=== PATIENT | male | born 1930 | race Caucasian/White ===

== ENCOUNTER 2018-02-15 01:05 | Emergency (ER) | payer MEDICARE ==
[2018-02-15] MEDS ORDERED: Diltiazem IV VIAL* 5 MG/ML 10 ML VIAL IV SLOW PU ONE (01:23)
[2018-02-15] MEDS ORDERED: Digoxin IV* 0.5 MG/2 ML AMP (0.25 MG/ML) IV SLOW PU ONE (01:23)
--- OUTSIDE RECORDS SUMMARY | 2018-02-15 01:25 | XMS REPORT ---
:1930 External Reference #:[id number] Author Organization [facility] Address [address] [place] [address] [place] [address] Phone [phone] Care Team Providers Name Role Phone Alexus Bazan MD Primary Care Physician Unavailable Payers Type Date Identification Numbers Payment Provider Subscriber Health Maintenance Policy Number: Medicare Blue Ppo Jefe Segal (O) [id number] PayID: [id number] [address] [address] [place] [address] Problems Date Description Provider Status Onset: 01/19/2013 Benign essential hypertension Eufemia Garcia M.D., FACP Active Onset: 01/19/2013 Pure hypercholesterolemia Eufemia Garcia M.D., FACP Active Onset: 04/05/2015 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 Active Onset: 10/05/2015 Essential hypertension Alexus Bazan M.D. Active Onset: 04/14/2016 Dizziness and giddiness Alexus Bazan M.D. Active Note: migrainous vertigo Onset: 07/16/2016 Migraine variants, not intractable Jessica Lindsay MD Active Onset: 01/19/2013 Dysfunction of eustachian tube Eufemia Garcia M.D., FACP Inactive Inactive: 04/14/2016 Family History Date Family Member(s) Problem(s) Comments General Heart Disease General cancer Onset: (age 77 Years) Father Emphysema Rug Sample Beveler - Onset: (age 78 Years) Mother Stroke Siblings 9 5 Sisters - 1 from [place] 4 Brothers - ! Brother with dissecting aortic aneurysm - survived Social History Type Date Description Comments Marital Status Lives With Alone Occupation Retired [employer] ETOH Use Denies alcohol use Smoking 01/31/2016 Patient has never smoked pt tried it a little in the .Document: 01/31/16 - Follow Up Cardiology Recreational Drug Use Denies Drug Use Daily Caffeine Consumes on average 8oz of soda per day Daily Caffeine Consumes on average 2 cups of hot tea per day Exercise Type/Frequency Exercises regularly Stationary bike - 30 minutes Allergies, Adverse Reactions, Alerts Date Description Reaction Status Severity Comments 01/19/2013 NKDA active Medications Medication Date Status Form Strength Qnty SIG Indications Ordering Provider Verapamil HCL 02/04/ Active Tablets 80mg 90tab 1 tab by G43.809 Rafael 2017 s mouth in Hao, am and 2 MD at night Eliquis 11/27/ Active Tablets 2.5mg 180ta 1 tablet I48.0 Mitchell Faust 2018 bs by mouth [place], twice a DO [facility] day. Diazepam 11/21/ Active Tablets 5mg take one Unknown 2015 tab by mouth naheed 6 hrs as needed for vertigo/ anxiety given at [facility] prn Fluticasone 03/03/ Active Suspension 50mcg/Act 16uni 1 sprays Z00.00 Alexus Propionate 2014 ts each Bazan, nostril M.D. daily as needed Atorvastatin 02/09/ Active Tablets 10mg 90tab /2 by E78.5 Alexus Calcium 2012 s mouth Bazan, every M.D. day Ocuvite Lutein 00/ Active Capsules 30cap 1 po qd Unknown 0000 s Osteo Bi-Flex 00/ Active Tablets 2 day Unknown Advanced Triple 0000 Strength Vitamin D 3 / Active 1000Iu 1 po qd Unknown 0000 Vitamin B12 / Active Tablets Sub 500mcg 1 by Unknown 0000 mouth every day Verapamil HCL ER 10/18/ Hx Caps ER 24HR 200mg 30cap take 1 G43.809 Rafael 2017 - s pill Hao, 02/04/ once a MD 2017 day at night Verapamil HCL 07/16/ Hx Tablets 40mg 120ta 1 tab by Jessica 2017 Yaz bs farhat Lindsay MD 04/10/ 2016 night at bedtime x1 week then 1 twice daily x1 wk then 1 in Am and 2 in PM x1wk then 2 twice a day Amlodipine 07/10/ Hx Tablets 2.5mg 90tab 1 by I10 Mitchell Ann 2016 mouth Maloney, 07/10/ every DO FAC 2016 day Amlodipine 07/10/ Hx Tablets 5mg 90tab 1 by I10 Mitchell Ann 2016 s mouth Maloney, 07/17/ every DO FAC 2016 day Amlodipine 04/09/ Hx Tablets 5mg 90tab 1 by I10 Mitchell Ann 2015 mouth Maloney, 07/10/ every DO FACC 2016 day (pt is taking 1- 2.5mg tab) Eliquis 03/29/ Hx Tablets 5mg 180ta 1 by I48.0 Mitchell Faust 2015 Yaz bs mouth Maloney, 11/27/ twice a DO FAC 2017 day Amlodipine 01/09/ Hx Tablets 2.5mg 90tab 1 by Alexus Ann 2015 mouth Bazan, 04/09/ every M.D. 2015 day Ergocalciferol 04/06/ Hx Capsules [id number] 8caps 1 tab by Alexus 2014 - mouth Bazan, 12/05/ every M.D. 2015 week Klor-Con M20 03/29/ Hx Tablets ER 20Meq 90tab 1 by Mitchell Faust 2014 mouth Maloney, 01/08/ once a DO FAC 2017 day Meclizine HCL 03/03/ Hx Tablets 25mg 90tab 1 tablet Z00.00 Alexus 2014 - s three Bazan, 04/09/ times a M.D. 2015 day for vertigo ( pt states he stop taking 03/30/16 ) Ergocalciferol 02/09/ Hx Capsules [id number] 8caps 1 cap by 268.9 Eufemia 2012 - mouth Radha, 04/21/ every M.D., 2012 week FACP Aspirin Adult / Hx Chewtabs 81mg 30uni 1 po qd Unknown Low Strength 0000 - ts 2015 Fluticasone / Hx Suspension 50mcg/Act 16gm 1 spray Unknown Propionate 0000 - each 12/20/ nostril 2013 daily as needed Amlodipine / Hx Tablets 10mg 90tab 1 by Alexus Besylate 0000 - s mouth Bazan, 01/09/ every M.D. 2015 day Triamterene/Hydr / Hx Capsules 37.5-25mg 90cap 1 by Alexus ochlorothiazide 0000 - s mouth Bazan, 09/10/ every M.D. 2017 day Advil Cold & / Hx Capsules 30-200mg 1 po qd Unknown Sinus 0000 - prn 2015 Potassimin / Hx 20 Unknown - 2015 Potassium / Hx Tablets ER 20Meq 1 by Unknown Chloride ER 0000 - mouth 10/10/ 2015 day Zyrtec Allergy / Hx Capsules 10mg 1 by Unknown 0000 - mouth 04/16/ 2016 day Simply Saline / Hx Aerosol 0.9% bid Unknown - 2017 Immunizations CPT Code Status Date Vaccine Lot # [id number] Given 04/16/2017 Influenza Virus Vaccine, Quadrivalent, Split, [id number] Preservative Free [id number] Given 03/20/2016 Fluzone High Dose 46016 Given 04/05/2015 Pneumococcal Conjugate Vaccine 13 Valent For [id number] Intramuscular Use 28986 Given 03/03/2015 Influenza Virus Vaccine, Quadrivalent, Split, [id number] Preservative Free [id number] Given 04/11/2014 Fluvirin Im 3Yrs And Older 59910 Given 02/09/2013 Tdap - Tetanus/Diptheria/Acellular Pertussis [id number] 88525 Given 01/19/2013 Zoster (Zostavax) [id number] 10402 Given 04/20/2011 Pneumonia Vaccine [id number] Given 11/18/1996 Tdap - Tetanus/Diptheria/Acellular Pertussis Vital Signs Date Vital Result Comment 02/04/2018 Height 70 inches 5'10" Weight 179.12 lb Heart Rate 80 /min BP Systolic Sitting 130 mmHg BP Diastolic Sitting 80 mmHg BMI (Body Mass Index) 25.7 kg/m2 11/27/2017 Height 70 inches 5'10" Weight 183.00 lb Heart Rate 80 /min BP Systolic Sitting 128 mmHg lue reg cuff BP Diastolic Sitting 80 mmHg lue reg cuff BP Systolic Standing 134 mmHg BP Diastolic Standing 82 mmHg Respiratory Rate 16 /min BMI (Body Mass Index) 26.3 kg/m2 Ejection Fraction 60-65% 01/09/2016 echo 09/10/2017 Height 70 inches 5'10" Weight 180.00 lb without shoes Heart Rate 96 /min BP Systolic Sitting 132 mmHg Lue reg cuff BP Diastolic Sitting 80 mmHg Lue reg cuff BP Systolic Standing 136 mmHg Lue reg cuff BP Diastolic Standing 74 mmHg Lue reg cuff Respiratory Rate 20 /min BMI (Body Mass Index) 25.8 kg/m2 Ejection Fraction 60-65% date 01/09/16 ECHO 05/07/2017 Height 70.2 inches 5'10.20" Weight 182.12 lb Heart Rate 76 /min BP Systolic 138 mmHg BP Diastolic 78 mmHg BMI (Body Mass Index) 26.0 kg/m2 04/16/2017 Height 70.2 inches 5'10.20" Weight 183.00 lb Heart Rate 86 /min BP Systolic Sitting 140 mmHg BP Diastolic Sitting 82 mmHg O2 % BldC Oximetry 92 % BMI (Body Mass Index) 26.1 kg/m2 10/18/2016 Height 70 inches 5'10" Weight 186.00 lb Heart Rate 76 /min BP Systolic Sitting 132 mmHg BP Diastolic Sitting 78 mmHg Respiratory Rate 16 /min BMI (Body Mass Index) 26.7 kg/m2 10/14/2016 Height 70 inches 5'10" Weight 185.12 lb Heart Rate 74 /min BP Systolic 128 mmHg BP Diastolic 72 mmHg Body Temperature 98.4 F O2 % BldC Oximetry 96 % BMI (Body Mass Index) 26.6 kg/m2 07/16/2016 Height 70 inches 5'10" Weight 187.00 lb Heart Rate 80 /min BP Systolic Sitting 112 mmHg BP Diastolic Sitting 70 mmHg Respiratory Rate 16 /min BMI (Body Mass Index) 26.8 kg/m2 07/10/2016 Height 70 inches 5'10" Weight 187.50 lb with shoes Heart Rate 84 /min BP Systolic Sitting 128 mmHg Lue reg cuff BP Diastolic Sitting 82 mmHg Lue reg cuff BP Systolic Standing 138 mmHg Lue reg cuff BP Diastolic Standing 86 mmHg Lue reg cuff Respiratory Rate 16 /min BMI (Body Mass Index) 26.9 kg/m2 Ejection Fraction 60-65% 01/09/2016 echo 04/16/2016 Height 70 inches 5'10" Weight 185.12 lb Heart Rate 94 /min BP Systolic Sitting 130 mmHg BP Diastolic Sitting 70 mmHg Body Temperature 98.3 F O2 % BldC Oximetry 95 % BMI (Body Mass Index) 26.6 kg/m2 04/09/2016 Height 70 inches 5'10" Weight 183.00 lb Heart Rate 77 /min BP Systolic Sitting 166 mmHg BP Diastolic Sitting 78 mmHg Body Temperature 97.7 F O2 % BldC Oximetry 97 % BMI (Body Mass Index) 26.3 kg/m2 03/29/2016 Height 70 inches 5'10" Weight 182.50 lb with shoes Heart Rate 98 /min BP Systolic Sitting 160 mmHg Lue reg cuff BP Diastolic Sitting 96 mmHg Lue reg cuff BP Systolic Standing 156 mmHg Lue reg cuff BP Diastolic Standing 90 mmHg Lue reg cuff Respiratory Rate 20 /min BMI (Body Mass Index) 26.2 kg/m2 Ejection Fraction 60-65% 01/09/2016 01/31/2016 Height 70 inches 5'10" Weight 180.50 lb Heart Rate 76 /min BP Systolic Sitting 144 mmHg Right arm regular cuff BP Diastolic Sitting 70 mmHg Right arm regular cuff BP Systolic Standing 124 mmHg BP Diastolic Standing 66 mmHg BMI (Body Mass Index) 25.9 kg/m2 Ejection Fraction 60-65% 01/09/16 01/16/2016 Weight 180.00 lb Heart Rate 80 /min BP Systolic Sitting 138 mmHg BP Diastolic Sitting 70 mmHg O2 % BldC Oximetry 97 % 12/06/2015 Weight 178.00 lb Heart Rate 101 /min BP Systolic Sitting 126 mmHg BP Diastolic Sitting 84 mmHg Body Temperature 96.9 F O2 % BldC Oximetry 97 % 10/13/2015 Height 69.5 inches 5'9.50" Weight 182.00 lb Heart Rate 88 /min BP Systolic Sitting 126 mmHg Ra reg cuff BP Diastolic Sitting 82 mmHg Ra reg cuff BP Systolic Standing 128 mmHg LA reg cuff BP Diastolic Standing 80 mmHg LA reg cuff BP Systolic Lying Down 118 mmHg LA BP Diastolic Lying Down 78 mmHg LA Respiratory Rate 18 /min BMI (Body Mass Index) 26.5 kg/m2 10/05/2015 Weight 182.00 lb Heart Rate 66 /min BP Systolic Sitting 123 mmHg BP Diastolic Sitting 71 mmHg Body Temperature 96.7 F 05/16/2015 Height 72 inches 6'0" Weight 183.00 lb Heart Rate 97 /min BP Systolic 135 mmHg BP Diastolic 72 mmHg BMI (Body Mass Index) 24.8 kg/m2 04/05/2015 Weight 183.00 lb Heart Rate 84 /min BP Systolic Sitting 132 mmHg BP Diastolic Sitting 80 mmHg Respiratory Rate 13 /min Body Temperature 98.3 F O2 % BldC Oximetry 97 % 03/03/2015 Weight 183.00 lb Heart Rate 78 /min BP Systolic Sitting 153 mmHg BP Diastolic Sitting 82 mmHg Body Temperature 97.0 F 12/20/2013 Height 70.25 inches 5'10.25" Weight 187.00 lb Heart Rate 72 /min BP Systolic Sitting 140 mmHg BP Diastolic Sitting 78 mmHg BMI (Body Mass Index) 26.6 kg/m2 04/21/2013 Weight 185.00 lb Heart Rate 70 /min irreg BP Systolic Sitting 142 mmHg BP Diastolic Sitting 76 mmHg 02/09/2013 Height 70.25 inches 5'10.25" Weight 185.00 lb Heart Rate 84 /min BP Systolic Sitting 128 mmHg BP Diastolic Sitting 82 mmHg BMI (Body Mass Index) 26.4 kg/m2 01/19/2013 Height 70.25 inches 5'10.25" Weight 180.25 lb Heart Rate 88 /min BP Systolic Sitting 130 mmHg BP Diastolic Sitting 72 mmHg BMI (Body Mass Index) 25.7 kg/m2 Results Test Date Test Result H/L Range Note Basic Metabolic Panel 01/19/2018 Sodium 141 mmol/L 135-145 Potassium 4.0 mmol/L 3.5-5.0 Chloride 107 mmol/L 101-111 Co2 Carbon Dioxide 28 mmol/L 22-32 Anion Gap 6 mmol/L 2-11 Glucose 113 mg/dL High 70-100 Blood Urea Nitrogen 16 mg/dL 6-24 Creatinine 0.98 mg/dL 0.67-1.17 BUN/Creatinine Ratio 16.3 8-20 Calcium 9.1 mg/dL 8.6-10.3 Egfr Non- 72.5 >60 Egfr 87.7 >60 1 Laboratory test finding 11/21/2017 PSA Screening 1.204 ng/mL 0-4.0 2 Laboratory test finding 04/24/2017 Hemoglobin A1c 5.6 5-7 Lipid Profile (Trig/Chol/HDL) 04/22/2017 Triglycerides 104 mg/dL 3 Cholesterol 132 mg/dL 4 HDL Cholesterol 35.4 mg/dL 5 LDL Cholesterol 76 mg/dL 6 Basic Metabolic Panel 04/22/2017 Sodium 137 mmol/L 133-145 Potassium 4.2 mmol/L 3.5-5.0 Chloride 102 mmol/L 101-111 Co2 Carbon Dioxide 28 mmol/L 22-32 Anion Gap 7 mmol/L 2-11 Glucose 114 mg/dL High 70-100 Blood Urea Nitrogen 18 mg/dL 6-24 Creatinine 1.17 mg/dL 0.67-1.17 BUN/Creatinine Ratio 15.4 8-20 Calcium 9.9 mg/dL 8.6-10.3 Egfr Non- 59.2 >60 Egfr 76.2 >60 7 Laboratory test finding 04/22/2017 Vitamin B12 489 pg/mL 180-914 8 Laboratory test finding 11/26/2016 PSA Diagnostic 0.621 ng/mL 0-4.0 Laboratory test finding 11/26/2016 Vitamin B12 176 pg/mL Low 180-914 9 Methylmalonic Acid Mma 0.29 nmol/mL <=0.40 10 TSH (Thyroid Stim Horm) 0.90 mcIU/mL 0.34-5.60 Comp Metabolic Panel 09/30/2016 Sodium 135 mmol/L 133-145 Potassium 4.0 mmol/L 3.5-5.0 Chloride 103 mmol/L 101-111 Co2 Carbon Dioxide 26 mmol/L 22-32 Anion Gap 6 mmol/L 2-11 Glucose 92 mg/dL 70-100 Blood Urea Nitrogen 21 mg/dL 6-24 Creatinine 1.09 mg/dL 0.67-1.17 BUN/Creatinine Ratio 19.3 8-20 Calcium 9.3 mg/dL 8.6-10.3 Total Protein 6.6 g/dL 6.4-8.9 Albumin 3.9 g/dL 3.2-5.2 Globulin 2.7 g/dL 2-4 Albumin/Globulin Ratio 1.4 1-3 Total Bilirubin 0.80 mg/dL 0.2-1.0 Alkaline Phosphatase 55 U/L 34-104 Alt 11 U/L 7-52 Ast 14 U/L 13-39 Egfr Non- 64.3 >60 Egfr 82.7 >60 11 Laboratory test finding 04/09/2016 Potassium 4.4 mmol/L 3.5-5.0 Lipid Profile (Trig/Chol/HDL) 04/04/2016 Triglycerides 96 mg/dL 12 Cholesterol 129 mg/dL 13 HDL Cholesterol 34.3 mg/dL 14 LDL Cholesterol 76 mg/dL 15 Basic Metabolic Panel 01/16/2016 Sodium 135 mmol/L 133-145 Potassium 4.1 mmol/L 3.5-5.0 Chloride 100 mmol/L Low 101-111 Co2 Carbon Dioxide 29 mmol/L 22-32 Anion Gap 6 mmol/L 2-11 Glucose 100 mg/dL 70-100 Blood Urea Nitrogen 23 mg/dL 6-24 Creatinine 1.15 mg/dL 0.67-1.17 BUN/Creatinine Ratio 20.0 8-20 Calcium 9.4 mg/dL 8.6-10.3 Egfr Non- 60.6 >60 Egfr 77.9 >60 16 Laboratory test finding 01/08/2016 Magnesium 2.0 mg/dL 1.9-2.7 C Reactive Protein 2.62 mg/L < 5.00 17 Troponin-I (TnI) 0.00 ng/mL <0.03 18 TSH (Thyroid Stim Horm) 1.09 mcIU/mL 0.34-5.60 Comp Metabolic Panel 01/08/2016 Sodium 136 mmol/L 133-145 Potassium 3.2 mmol/L Low 3.5-5.0 Chloride 101 mmol/L 101-111 Co2 Carbon Dioxide 28 mmol/L 22-32 Anion Gap 7 mmol/L 2-11 Glucose 122 mg/dL High 70-100 Blood Urea Nitrogen 18 mg/dL 6-24 Creatinine 1.09 mg/dL 0.67-1.17 BUN/Creatinine Ratio 16.5 8-20 Calcium 9.8 mg/dL 8.6-10.3 Total Protein 7.1 g/dL 6.4-8.9 Albumin 3.8 g/dL 3.2-5.2 Globulin 3.3 g/dL 2-4 Albumin/Globulin Ratio 1.2 1-3 Total Bilirubin 0.60 mg/dL 0.2-1.0 Alkaline Phosphatase 58 U/L 34-104 Alt 12 U/L 7-52 Ast 15 U/L 13-39 Egfr Non- 64.4 >60 Egfr 82.9 >60 19 Urinalysis Profile 01/08/2016 Urine Color Yellow Urine Appearance Clear Urine Specific [place] 1.008 Low 1.010-1.030 Urine pH 8.0 5-9 Urine Urobilinogen Negative Negative Urine Ketones Negative Negative Urine Protein Negative Negative Urine Leukocytes Negative Negative Urine Blood Negative Negative Urine Nitrite Negative Negative Urine Bilirubin Negative Negative Urine Glucose Negative Negative CBC Auto Diff 01/08/2016 White Blood Count 8.8 10^3/uL 3.5-10.8 Red Blood Count 5.33 10^6/uL 4.0-5.4 Hemoglobin 16.2 g/dL 14.0-18.0 Hematocrit 48 % 42-52 Mean Corpuscular Volume 90 fL 80-94 Mean Corpuscular Hemoglobin 31 pg 27-31 Mean Corpuscular HGB Conc 34 g/dL 31-36 Red Cell Distribution Width 14 % 10.5-15 Platelet Count 254 10^3/uL 150-450 Mean Platelet Volume 9 um3 7.4-10.4 Abs Neutrophils 6.5 10^3/uL 1.5-7.7 Abs Lymphocytes 0.9 10^3/uL Low 1.0-4.8 Abs Monocytes 1.3 10^3/uL High 0-0.8 Abs Eosinophils 0 10^3/uL 0-0.6 Abs Basophils 0.1 10^3/uL 0-0.2 Abs Nucleated RBC 0 10^3/uL Granulocyte % 74.0 % 38-83 Lymphocyte % 10.2 % Low 25-47 Monocyte % 14.4 % High 1-9 Eosinophil % 0.6 % 0-6 Basophil % 0.8 % 0-2 Nucleated Red Blood Cells % 0.1 Laboratory test finding 01/08/2016 Lactic Acid 2.0 mmol/L 0.5-2.0 20 B-Type Natriuretic Peptide BNP 124 pg/mL High 21 Laboratory test finding 11/15/2015 PSA Diagnostic 0.597 ng/mL 0-4.0 22 CBC Auto Diff 11/13/2015 White Blood Count 8.4 10^3/uL 3.5-10.8 Red Blood Count 5.27 10^6/uL 4.0-5.4 Hemoglobin 16.0 g/dL 14.0-18.0 Hematocrit 49 % 42-52 Mean Corpuscular Volume 93 fL 80-94 Mean Corpuscular Hemoglobin 30 pg 27-31 Mean Corpuscular HGB Conc 33 g/dL 31-36 Red Cell Distribution Width 13 % 10.5-15 Platelet Count 247 10^3/uL 150-450 Mean Platelet Volume 9 um3 7.4-10.4 Abs Neutrophils 6.4 10^3/uL 1.5-7.7 Abs Lymphocytes 1.1 10^3/uL 1.0-4.8 Abs Monocytes 0.8 10^3/uL 0-0.8 Abs Eosinophils 0.1 10^3/uL 0-0.6 Abs Basophils 0.1 10^3/uL 0-0.2 Abs Nucleated RBC 0.01 10^3/uL Granulocyte % 76.1 % 38-83 Lymphocyte % 12.7 % Low 25-47 Monocyte % 9.4 % High 1-9 Eosinophil % 0.6 % 0-6 Basophil % 1.2 % 0-2 Nucleated Red Blood Cells % 0.1 Urinalysis Profile 11/13/2015 Urine Color Straw Urine Appearance Clear Urine Specific [place] 1.006 Low 1.010-1.030 Urine pH 7.0 5-9 Urine Urobilinogen Negative Negative Urine Ketones Negative Negative Urine Protein Negative Negative Urine Leukocytes Negative Negative Urine Blood Negative Negative Urine Nitrite Negative Negative Urine Bilirubin Negative Negative Urine Glucose Negative Negative Laboratory test finding 11/13/2015 Lactic Acid 1.6 mmol/L 0.5-2.0 23 Comp Metabolic Panel 11/13/2015 Sodium 136 mmol/L 133-145 Potassium 3.5 mmol/L 3.5-5.0 Chloride 102 mmol/L 101-111 Co2 Carbon Dioxide 27 mmol/L 22-32 Anion Gap 7 mmol/L 2-11 Glucose 114 mg/dL High 70-100 Blood Urea Nitrogen 21 mg/dL 6-24 Creatinine 1.14 mg/dL 0.67-1.17 BUN/Creatinine Ratio 18.4 8-20 Calcium 9.5 mg/dL 8.6-10.3 Total Protein 7.1 g/dL 6.4-8.9 Albumin 4.1 g/dL 3.2-5.2 Globulin 3.0 g/dL 2-4 Albumin/Globulin Ratio 1.4 1-3 Total Bilirubin 0.60 mg/dL 0.2-1.0 Alkaline Phosphatase 64 U/L 34-104 Alt 9 U/L 7-52 Ast 14 U/L 13-39 Egfr Non- 61.2 >60 Egfr 78.7 >60 24 Laboratory test finding 11/13/2015 Magnesium 2.1 mg/dL 1.9-2.7 C Reactive Protein < 1.00 mg/L < 5.00 25 Troponin-I (TnI) 0.00 ng/mL <0.03 26 TSH (Thyroid Stim Horm) 1.03 ?IU/mL 0.34-5.60 Laboratory test finding 10/05/2015 Vitamin D Total 25(Oh) 33.7 ng/mL 30- 50 Basic Metabolic Panel 10/05/2015 Sodium 138 mmol/L 133-145 Potassium 3.6 mmol/L 3.5-5.0 Chloride 102 mmol/L 101-111 Co2 Carbon Dioxide 27 mmol/L 22-32 Anion Gap 9 mmol/L 2-11 Glucose 97 mg/dL 70-100 Blood Urea Nitrogen 21 mg/dL 6-24 Creatinine 1.09 mg/dL 0.67-1.17 BUN/Creatinine Ratio 19.3 8-20 Calcium 10.0 mg/dL 8.6-10.3 Egfr Non- 64.4 >60 Egfr 82.9 >60 27 Laboratory test finding 04/05/2015 Vitamin D Total 25(Oh) 27.0 ng/mL Low 30-50 Basic Metabolic Panel 04/05/2015 Sodium 137 mmol/L 133-145 Potassium 3.6 mmol/L 3.5-5.0 Chloride 102 mmol/L 101-111 Co2 Carbon Dioxide 29 mmol/L 22-32 Anion Gap 6 mmol/L 2-11 Glucose 92 mg/dL 70-100 Blood Urea Nitrogen 27 mg/dL High 6-24 Creatinine 1.25 mg/dL High 0.67-1.17 BUN/Creatinine Ratio 21.6 High 8-20 Calcium 9.7 mg/dL 8.6-10.3 Egfr Non- 55.2 >60 Egfr 70.9 >60 28 Comp Metabolic Panel 03/29/2015 Sodium 139 mmol/L 133-145 29 Potassium 3.2 mmol/L Low 3.5-5.0 29 Chloride 103 mmol/L 101-111 29 Co2 Carbon Dioxide 30 mmol/L 22-32 29 Anion Gap 6 mmol/L 2-11 29 Glucose 90 mg/dL 70-100 29 Blood Urea Nitrogen 29 mg/dL High 6-24 29 Creatinine 1.24 mg/dL High 0.67-1.17 29 BUN/Creatinine Ratio 23.4 High 8-20 29 Calcium 9.4 mg/dL 8.6-10.3 29 Total Protein 6.8 g/dL 6.4-8.9 29 Albumin 4.3 g/dL 3.2-5.2 29 Globulin 2.5 g/dL 2-4 29 Albumin/Globulin Ratio 1.7 1-3 29 Total Bilirubin 0.80 mg/dL 0.2-1.0 29 Alkaline Phosphatase 52 U/L 34-104 29 Alt 12 U/L 7-52 29 Ast 16 U/L 13-39 29 Egfr Non- 55.7 >60 29 Egfr 71.6 >60 29, 30 Lipid Profile (Trig/Chol/HDL) 03/29/2015 Triglycerides 120 mg/dL 29, 31 Cholesterol 131 mg/dL 29, 32 HDL Cholesterol 31.0 mg/dL 29, 33 LDL Cholesterol 76 mg/dL 29, 34 Comp Metabolic Panel 12/20/2013 Sodium 139 mmol/L 133-145 Potassium 3.7 mmol/L 3.7-5.6 Chloride 104 mmol/L 101-111 Co2 Carbon Dioxide 28 mmol/L 22-32 Anion Gap 7 mmol/L 2-11 Glucose 100 mg/dL 70-100 Blood Urea Nitrogen 25 mg/dL High 6-24 Creatinine 1.31 mg/dL High 0.67-1.17 BUN/Creatinine Ratio 19.1 8-20 Calcium 9.7 mg/dL 8.6-10.3 Total Protein 7.0 g/dL 6.4-8.9 Albumin 4.4 g/dL 3.2-5.2 Globulin 2.6 g/dL 2-4 Albumin/Globulin Ratio 1.7 1-3 Total Bilirubin 0.50 mg/dL 0.2-1.0 Alkaline Phosphatase 57 U/L 34-104 Alt 14 U/L 7-52 Ast 18 U/L 13-39 Egfr Non- 52.4 >60 Egfr 67.4 >60 35 CBC With Manual Diff 12/20/2013 White Blood Count 7.4 10^3/uL 4.8-10.8 Red Blood Count 4.96 10^6/uL 4.0-5.4 Hemoglobin 15.5 g/dL 14.0-18.0 Hematocrit 45 % 42-52 Mean Corpuscular Volume 90 fL 80-94 Mean Corpuscular Hemoglobin 31 pg 27-31 Mean Corpuscular HGB Conc 35 g/dL 31-36 Red Cell Distribution Width 14 % 10.5-15 Platelet Count 220 10^3/uL 150-450 Mean Platelet Volume 9 um3 7.4-10.4 Abs Neutrophils 5.5 10^3/uL 1.5-7.7 Abs Lymphocytes 1.1 10^3/uL 1.0-4.8 Abs Monocytes 0.6 10^3/uL 0-0.8 Abs Eosinophils 0.1 10^3/uL 0-0.6 Abs Basophils 0.1 10^3/uL 0-0.2 Abs Nucleated RBC 0 10^3/uL Neutrophil % 73 % 38-83 Lymphocytes % 17 % Low 25-47 Monocytes % 7 % 0-13 Eosinophils % 1 % 0-6 Basophil % 2 % 0-2 RBC Morphology Normal Normal Liver Function Panel 04/13/2013 Total Protein 7.0 g/dL 6.2-8.1 Albumin 4.2 g/dL 3.2-5.2 Globulin 2.8 g/dL 2-4 Albumin/Globulin Ratio 1.5 1-3 Total Bilirubin 1.2 mg/dL 0.4-1.5 Direct Bilirubin 0.2 mg/dL 0.1-0.5 Indirect Bilirubin 1.0 mg/dL 0.3-1.0 Alkaline Phosphatase 54 U/L 30-110 Alt 14 U/L 14-54 Ast 16 U/L 12-42 Lipid Profile (Trig/Chol/HDL) 04/13/2013 Triglycerides 126 mg/dL 40-200 Cholesterol 150 mg/dL Less than 200 HDL Cholesterol 33 mg/dL Low 40-60 36 Cholesterol/HDL Ratio 4.6 Average High 1-4.44 LDL Cholesterol 91.8 Less Than 100 37 CBC With Manual Diff 02/02/2013 White Blood Count 8.5 10^3/uL 4.8-10.8 Red Blood Count 5.05 10^6/uL 4.0-5.4 Hemoglobin 15.6 g/dL 14.0-18.0 Hematocrit 47 % 42-52 Mean Corpuscular Volume 93 fL 80-94 Mean Corpuscular Hemoglobin 31 pg 27-31 Mean Corpuscular HGB Conc 33 g/dL 31-36 Red Cell Distribution Width 13 % 10.5-15 Platelet Count 222 10^3/uL 150-450 Mean Platelet Volume 10 um3 7.4-10.4 Abs Neutrophils 6.0 10^3/uL 1.5-7.7 Abs Lymphocytes 1.6 10^3/uL 1.0-4.8 Abs Monocytes 0.7 10^3/uL 0-0.8 Abs Eosinophils 0.1 10^3/uL 0-0.6 Abs Basophils 0.1 10^3/uL 0-0.2 Abs Nucleated RBC 0.01 10^3/uL Granulocyte % 70.8 % 38-83 Lymphocyte % 19.0 % Low 25-47 Monocyte % 7.9 % 1-9 Eosinophil % 1.3 % 0-6 Basophil % 1.0 % 0-2 Nucleated Red Blood Cells % 0.1 Vitamin D, 25 Hydroxy 02/02/2013 25-Hydroxy Vitamin D2 <4.0 ng/mL 25-Hydroxy Vitamin D3 20 ng/mL 25-Hydroxy Vitamin D Total 20 ng/mL 38 Laboratory test finding 02/02/2013 CRP High Sensitivity 0.4 mg/L 39 Comp Metabolic Panel 02/02/2013 Sodium 139 mmol/L 133-145 Potassium 4.3 mmol/L 3.5-5.0 Chloride 105 mmol/L 101-111 Co2 Carbon Dioxide 27.0 mmol/L 22-32 Anion Gap 7.0 mmol/L 2-11 Glucose 111 mg/dL High 70-100 Blood Urea Nitrogen 18 mg/dL 6-24 Creatinine 1.20 mg/dL 0.50-1.40 BUN/Creatinine Ratio 15.0 8-20 Calcium 9.6 mg/dL 8.1-9.9 Total Protein 6.7 g/dL 6.2-8.1 Albumin 3.8 g/dL 3.2-5.2 Globulin 2.9 g/dL 2-4 Albumin/Globulin Ratio 1.3 1-3 Total Bilirubin 0.8 mg/dL 0.4-1.5 Alkaline Phosphatase 61 U/L 30-110 Alt 15 U/L 14-54 Ast 16 U/L 12-42 Egfr Non- 58.1 >60 Egfr 74.7 >60 40 Lipid Profile (Trig/Chol/HDL) 02/02/2013 Triglycerides 179 mg/dL 40-200 Cholesterol 204 mg/dL High Less than 200 HDL Cholesterol 32 mg/dL Low 40-60 41 Cholesterol/HDL Ratio 6.4 Average High 1-4.44 LDL Cholesterol 136.2 High Less Than 100 42 1 Because ethnic data is not always readily available, this report includes an eGFR for both -Americans and non- Americans. The National Kidney Disease Education Program (NKDEP) does not endorse the use of the MDRD equation for patients that are not between the ages of 18 and 70, are , have extremes of body size, muscle mass, or nutritional status, or are non- or non-. According to the [employer], irrespective of diagnosis, the stage of the disease is based on the level of kidney function: Stage Description GFR(mL/min/1.73 m(2)) 1 Kidney damage with normal or decreased GFR 90 2 Kidney damage with mild decrease in GFR 60-89 3 Moderate decrease in GFR 30-59 4 Severe decrease in GFR 15-29 5 Kidney failure <15 (or dialysis) 2 Serum levels of PSA measured using the [employer] immunoassay should not be interpreted as absolute evidence of the presence or absence of disease. The PSA value should be used in conjunction with other pertinent clinical diagnostic procedures. The values obtained with different assay methods or kits cannot be used interchangeably. 3 Desirable: <150 Borderline High: 150-199 High: 200-499 Very High: >500 4 Desirable: <200 Borderline High: 200-239 High: >239 5 Low: <40 Desirable: 40-60 High: >60 6 Desirable: <100 Near Optimal: 100-129 Borderline High: 130-159 High: 160-189 Very High: >189 7 Because ethnic data is not always readily available, this report includes an eGFR for both -Americans and non- Americans. The National Kidney Disease Education Program (NKDEP) does not endorse the use of the MDRD equation for patients that are not between the ages of 18 and 70, are , have extremes of body size, muscle mass, or nutritional status, or are non- or non-. According to the National Kidney Foundation, irrespective of diagnosis, the stage of the disease is based on the level of kidney function: Stage Description GFR(mL/min/1.73 m(2)) 1 Kidney damage with normal or decreased GFR 90 2 Kidney damage with mild decrease in GFR 60-89 3 Moderate decrease in GFR 30-59 4 Severe decrease in GFR 15-29 5 Kidney failure <15 (or dialysis) 8 Normal Range 180 to 914 Indeterminate Range 145 to 180 Deficient Range <145 9 Normal Range 180 to 914 Indeterminate Range 145 to 180 Deficient Range <145 10 ADDITIONAL INFORMATION This test was developed and its performance characteristics determined by [facility] in a manner consistent with CLIA requirements. This test has not been cleared or approved by the U.S. Food and Drug Administration. Test Performed by: [facility] - [address] [address] 11 Because ethnic data is not always readily available, this report includes an eGFR for both -Americans and non- Americans. The National Kidney Disease Education Program (NKDEP) does not endorse the use of the MDRD equation for patients that are not between the ages of 18 and 70, are , have extremes of body size, muscle mass, or nutritional status, or are non- or non-. According to the National Kidney Foundation, irrespective of diagnosis, the stage of the disease is based on the level of kidney function: Stage Description GFR(mL/min/1.73 m(2)) 1 Kidney damage with normal or decreased GFR 90 2 Kidney damage with mild decrease in GFR 60-89 3 Moderate decrease in GFR 30-59 4 Severe decrease in GFR 15-29 5 Kidney failure <15 (or dialysis) 12 Desirable <150 Borderline high 150-199 High 200-499 Very High >500 13 Desirable <200 Borderline high 200-239 High >239 14 Low <40 Desirable: 40-60 High: >60 15 Desirable: <100 mg/dL Near Optimal: 100-129 mg/dL Borderline High: 130-159 mg/dL High: 160-189 mg/dL Very High: >189 mg/dL 16 Because ethnic data is not always readily available, this report includes an eGFR for both -Americans and non- Americans. The National Kidney Disease Education Program (NKDEP) does not endorse the use of the MDRD equation for patients that are not between the ages of 18 and 70, are , have extremes of body size, muscle mass, or nutritional status, or are non- or non-. According to the National Kidney Foundation, irrespective of diagnosis, the stage of the disease is based on the level of kidney function: Stage Description GFR(mL/min/1.73 m(2)) 1 Kidney damage with normal or decreased GFR 90 2 Kidney damage with mild decrease in GFR 60-89 3 Moderate decrease in GFR 30-59 4 Severe decrease in GFR 15-29 5 Kidney failure <15 (or dialysis) 17 Acute inflammation: >10.00 18 Reference Range and Interpretation: TnI (ng/mL) Interpretation Less Than 0.03 ng/mL Not supportive of diagnosis of [place] 0.03 - 0.50 ng/mL Indeterminate: suggest serial studies if clinically indicated. Greater than 0.5 ng/mL Consistent with diagnosis of [place] 19 Because ethnic data is not always readily available, this report includes an eGFR for both -Americans and non- Americans. The National Kidney Disease Education Program (NKDEP) does not endorse the use of the MDRD equation for patients that are not between the ages of 18 and 70, are , have extremes of body size, muscle mass, or nutritional status, or are non- or non-. According to the National Kidney Foundation, irrespective of diagnosis, the stage of the disease is based on the level of kidney function: Stage Description GFR(mL/min/1.73 m(2)) 1 Kidney damage with normal or decreased GFR 90 2 Kidney damage with mild decrease in GFR 60-89 3 Moderate decrease in GFR 30-59 4 Severe decrease in GFR 15-29 5 Kidney failure <15 (or dialysis) 20 [facility] Severe Sepsis and Septic Shock Management Bundle Measure requires all lactic acids initially measuring >2.0 mmol/L be repeated. 21 >100 to <200 pg/mL: likely compensated congestive heart failure (CHF) 200 to 400 pg/mL: likely moderate CHF >400 pg/mL: likely moderate to severe CHF 22 Serum levels of PSA measured using the [employer] DXI Hybritech immunoassay should not be interpreted as absolute evidence of the presence or absence of disease. The PSA value should be used in conjunction with other pertinent clinical diagnostic procedures. A PSA value in the range of 0.1 to 0.6 ng/ml is indeterminate if being used as an indicator of recurrent or residual disease. The values obtained with different assay methods or kits cannot be used interchangeably. 23 [facility] Severe Sepsis and Septic Shock Management Bundle Measure requires all lactic acids initially measuring >2.0 mmol/L be repeated. 24 Because ethnic data is not always readily available, this report includes an eGFR for both -Americans and non- Americans. The National Kidney Disease Education Program (NKDEP) does not endorse the use of the MDRD equation for patients that are not between the ages of 18 and 70, are , have extremes of body size, muscle mass, or nutritional status, or are non- or non-. According to the National Kidney Foundation, irrespective of diagnosis, the stage of the disease is based on the level of kidney function: Stage Description GFR(mL/min/1.73 m(2)) 1 Kidney damage with normal or decreased GFR 90 2 Kidney damage with mild decrease in GFR 60-89 3 Moderate decrease in GFR 30-59 4 Severe decrease in GFR 15-29 5 Kidney failure <15 (or dialysis) 25 Acute inflammation: >10.00 26 Reference Range and Interpretation: TnI (ng/mL) Interpretation Less Than 0.03 ng/mL Not supportive of diagnosis of [place] 0.03 - 0.50 ng/mL Indeterminate: suggest serial studies if clinically indicated. Greater than 0.5 ng/mL Consistent with diagnosis of [place] 27 Because ethnic data is not always readily available, this report includes an eGFR for both -Americans and non- Americans. The National Kidney Disease Education Program (NKDEP) does not endorse the use of the MDRD equation for patients that are not between the ages of 18 and 70, are , have extremes of body size, muscle mass, or nutritional status, or are non- or non-. According to the National Kidney Foundation, irrespective of diagnosis, the stage of the disease is based on the level of kidney function: Stage Description GFR(mL/min/1.73 m(2)) 1 Kidney damage with normal or decreased GFR 90 2 Kidney damage with mild decrease in GFR 60-89 3 Moderate decrease in GFR 30-59 4 Severe decrease in GFR 15-29 5 Kidney failure <15 (or dialysis) 28 Because ethnic data is not always readily available, this report includes an eGFR for both -Americans and non- Americans. The National Kidney Disease Education Program (NKDEP) does not endorse the use of the MDRD equation for patients that are not between the ages of 18 and 70, are , have extremes of body size, muscle mass, or nutritional status, or are non- or non-. According to the National Kidney Foundation, irrespective of diagnosis, the stage of the disease is based on the level of kidney function: Stage Description GFR(mL/min/1.73 m(2)) 1 Kidney damage with normal or decreased GFR 90 2 Kidney damage with mild decrease in GFR 60-89 3 Moderate decrease in GFR 30-59 4 Severe decrease in GFR 15-29 5 Kidney failure <15 (or dialysis) 29 PT IS FASTING 30 Because ethnic data is not always readily available, this report includes an eGFR for both -Americans and non- Americans. The National Kidney Disease Education Program (NKDEP) does not endorse the use of the MDRD equation for patients that are not between the ages of 18 and 70, are , have extremes of body size, muscle mass, or nutritional status, or are non- or non-. According to the National Kidney Foundation, irrespective of diagnosis, the stage of the disease is based on the level of kidney function: Stage Description GFR(mL/min/1.73 m(2)) 1 Kidney damage with normal or decreased GFR 90 2 Kidney damage with mild decrease in GFR 60-89 3 Moderate decrease in GFR 30-59 4 Severe decrease in GFR 15-29 5 Kidney failure <15 (or dialysis) 31 Desirable <150 Borderline high 150-199 High 200-499 Very High >500 32 Desirable <200 Borderline high 200-239 High >239 33 Low <40 Desirable: 40-60 High: >60 34 Desirable: <100 mg/dL Near Optimal: 100-129 mg/dL Borderline High: 130-159 mg/dL High: 160-189 mg/dL Very High: >189 mg/dL 35 Because ethnic data is not always readily available, this report includes an eGFR for both -Americans and non- Americans. The National Kidney Disease Education Program (NKDEP) does not endorse the use of the MDRD equation for patients that are not between the ages of 18 and 70, are , have extremes of body size, muscle mass, or nutritional status, or are non- or non-. According to the National Kidney Foundation, irrespective of diagnosis, the stage of the disease is based on the level of kidney function: Stage Description GFR(mL/min/1.73 m(2)) 1 Kidney damage with normal or decreased GFR 90 2 Kidney damage with mild decrease in GFR 60-89 3 Moderate decrease in GFR 30-59 4 Severe decrease in GFR 15-29 5 Kidney failure <15 (or dialysis) 36 HDL Interpretation: Undesirable: High Risk: Less than 40 mg/dL Desirable: Low Risk: Greater than 60 mg/dL 37 LDL Interpretation: Low Risk Optimal Level: LDL Less than 100 mg/dL Near or Above Optimal: LDL 100-129 mg/dL Borderline High Risk: LDL 130-159 mg/dL High Risk: LDL 160-189 mg/dL Very High Risk: LDL Greater than 189 mg/dL 38 Interpretation: 10-24 (mild to moderate deficiency) -- REFERENCE VALUE -- 25-HYDROXY D TOTAL (D2+D3) Optimum levels in the normal population are 25-80 Test Performed by: [place] [address] End Matcher: Inocencio Titus III, M.D. 39 Less Than 1.0......Low Risk of Cardiovascular Disease 1.0-3.0............Medium Risk (<2 Fold Increase) Greater Than 3.0...High Risk (Approximately 2-Fold Increase) 40 Because ethnic data is not always readily available, this report includes an eGFR for both -Americans and non- Americans. The National Kidney Disease Education Program (NKDEP) does not endorse the use of the MDRD equation for patients that are not between the ages of 18 and 70, are , have extremes of body size, muscle mass, or nutritional status, or are non- or non-. According to the National Kidney Foundation, irrespective of diagnosis, the stage of the disease is based on the level of kidney function: Stage Description GFR(mL/min/1.73 m(2)) 1 Kidney damage with normal or decreased GFR 90 2 Kidney damage with mild decrease in GFR 60-89 3 Moderate decrease in GFR 30-59 4 Severe decrease in GFR 15-29 5 Kidney failure <15 (or dialysis) 41 HDL Interpretation: Undesirable: High Risk: Less than 40 mg/dL Desirable: Low Risk: Greater than 60 mg/dL 42 LDL Interpretation: Low Risk Optimal Level: LDL Less than 100 mg/dL Near or Above Optimal: LDL 100-129 mg/dL Borderline High Risk: LDL 130-159 mg/dL High Risk: LDL 160-189 mg/dL Very High Risk: LDL Greater than 189 mg/dL Procedures Date CPT Code Description Status Comment 09/10/2017 91368 EKG Tracing & Interpretation Completed 04/24/2017 86225 Destruction ALL Benign Or Completed Premalignant Lesion (Other Than [place] 02/14/2016 35648 Event Monitor/Phys Completed Review/Interp. 01/31/2016 29370 EKG Tracing & Interpretation Completed 01/09/2016 53682 ECHO Transthorasic Realtime 2D W Completed Doppler & Color Flow Hosp 11/09/2015 38224 Carotid Doppler,Bilateral Completed 10/13/2015 65570 EKG Tracing & Interpretation Completed 10/05/2015 01669 EKG Tracing & Interpretation Completed 04/11/2015 Bone Mineral Density Test Completed 04/04/2015 54618 Nerve Conduction 03-04 Studies Completed 04/04/2015 12442 Needle Electromyography Each Completed Extremity W/Related Paraspinal Areas 12/20/2013 15987 EKG Tracing & Interpretation Completed 02/09/2013 98026 EKG Tracing & Interpretation Completed 02/09/2013 38968 Remove Impacted Cerumen Completed 09/28/2007 36957 Color Flow Doppler/Interp & Completed Reprt 09/28/2007 55336 Pulse Wave/Continuous-Interp.RPT Completed 09/28/2007 91797 Pulse Wave/Continuous-Interp.RPT Completed 09/28/2007 46755 Echocardiogram Completed 11/17/2006 Colonoscopy Completed 06/27/2000 Diabetic Retinal Eye Exam Completed Document: 06/27/00 - Consult Ophthal/Arleo Encounters Type Date Location Provider CPT E/M Dx Office Visit 01/12/2018 11:[address]a [facility] [place] [address] L82.1 D18.01 Office Visit 11/27/2017 11:20a [facility] Jarrett Maloney, [address] [facility] FACC I10 E78.5 R42 Office Visit 09/10/2017 1:40p [facility] [place] [address] [facility] FACC I10 E78.5 R42 Office Visit 05/07/2017 2:00p [facility] [place] [address] G43.809 Office Visit 04/24/2017 10:[address]a [facility] [place] [address] D18.01 L82.1 L57.0 Office Visit 04/16/2017 1:20p [facility] Internal Medicine Alexus Bazan [address]255 Z00.00 - aFnny Martel I10 E87.6 E78.5 E53.8 Z12.83 J30.9 Z23 Office Visit 10/18/2016 10:30a [facility] [place] [address] G43.[address] [facility] R53.83 Office Visit 10/14/2016 10:[address]a [facility] Internal Medicine Alexus Bazan 269[address] G43.809 - Fanny Martel R53.83 E87.6 Office Visit 07/16/2016 1:00p [facility] [place] [address] G43[address] [facility] Office Visit 07/10/2016 2:00p [facility] Of Mitchell Maloney, [address] [facility] DO FACC I10 E78.2 Office Visit 04/16/2016 1:40p [facility] Internal Medicine - Alexus Bazan M.D. 76149 I10 Fanny G43.809 Office Visit 04/09/2016 11:10a [facility] Internal Medicine Alexus Bazan 44405 Z00.00 - Fanny Martel I10 H81.11 F43.29 E78.2 E87.6 Office Visit 03/29/2016 3:40p [facility] [place] [address] [facility] FACC I10 E78.5 Office Visit 01/31/2016 3:40p [facility] [place] [address] [facility] FACC I10 Office Visit 01/16/2016 1:40[address] [facility] Internal Medicine Alexus Bazan M.D. 62134 I48.0 - [place] E87.6 H81.13 Office Visit 01/09/2016 3:08p [facility],pc Bra[place] Michelle, 62915 I48.91 Hospitalists MSarika R42 I10 Office Visit 01/08/2016 3:07p [facility], [place] Henriqueyuliana, [address]9775 I48.91 Hospitalists Delonte R42 I10 Office Visit 12/06/2015 2:20p [facility] Internal Medicine Lou Lopez, N.P. 33316 H81.13 - [place] H81.11 Office Visit 10/13/2015 1:40p [facility] Of [facility] Mitchell ShepherdDO maxine [address]75[address] R42 FACC R94.31 I10 E78.5 Office Visit 10/05/2015 10:[address]a [facility] Internal Medicine - Alexus Bazan M.D. 59125 I10 [place] E55.9 E87.6 R94.31 Office Visit 05/16/2015 1:00p [facility] [place] [address] S46.012A C.M.A. G56.02 Office Visit 03/03/2015 11:[address]a [facility] Internal Medicine Lou Lopez, N.P. 52237 H81.13 - [place] R20.2 V04.81 Z23 Office Visit 12/20/2013 1:00p [facility] Internal Medicine Lou Lopez N.P. 80740 V72.84 - [place] 401.1 272.4 Office Visit 04/21/2013 10:[address]a [facility] Internal Medicine - Eufemia Garcia M.D., 07688 272.4 [place] FACP Office Visit 02/09/2013 2:20p [facility] Internal Medicine - Eufemia Garcia M.D., 47452 V70.0 [place] FACP 272.4 268.9 424.1 401.1 V06.1 380.4 Office Visit 01/19/2013 1:20p [facility] Internal Medicine - Eufemia Garcia M.D., 74031 401.1 [place] FACP 272.0 381.81 729.1 V04.89 268.9 V04.81 Plan of Care Future Appointment(s):04/14/2018 10:45 am - Rafael Bui MD at [facility] Xxulpt8404/29/2018 10:50 am - Austin Pantoja MD at [facility] Dyllzocbfsg81/20/2018 1:00 pm - Alexus Bazan M.D. at 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 Since the symptoms have worsened especially in the morning and since he is not having clear side effects from verapamil will try verapamil 80mg in am and 160mg in pm. He will call if gets lightheaded.Follow up:10 WEEKS
[2018-02-15] MEDS ORDERED: NS 0.9% 1000 ML* 2,000 ML IV SCH (01:30)
[2018-02-15 01:40] LABS: Hematocrit 48 % (42-52); Hemoglobin 15.9 g/dl (14.0-18.0); Mean Corpuscular HGB Conc 33 g/dl (31-36); Mean Corpuscular Hemoglobin 31 pg (27-31); Mean Corpuscular Volume 93 fL (80-94); Mean Platelet Volume 8.8 um3 (7.4-10.4); Platelet Count 180 10^3/ul (150-450); Red Blood Count 5.12 10^6/ul (4.00-5.40); Red Cell Distribution Width 14 % (10.5-15); White Blood Count 14.8 10^3/ul (3.5-10.8)
[2018-02-15 01:49] LABS: INR 1.09 (0.77-1.02)
[2018-02-15 01:51] LABS: ABS Neutrophils 13.4 10^3/ul (1.5-7.7); ABS Nucleated RBC 0 10^3/ul
[2018-02-15 01:57] LABS: EGFR Non-African American 62.8 (>60)
--- NOTE | 2018-02-15 02:08 | ED ---
Complex/Multi-Sys Presentation - HPI Summary HPI Summary: 87 year old M BIB EMS to [facility] complains of nausea/vomiting/diarrhea since 22: 00 yesterday. Symptoms aggravated by nothing. Symptoms alleviated by nothing. Patient denies chest pain and shortness of breath. EMS administered Aspirin, Zofran, and NTG in field. Patient has hx paroxysmal afib and is on Eliquis. - History Of Current Complaint Chief Complaint: EDNauseaVomitDiarrh Time Seen by Provider: 02/15/18 01:21 Hx Obtained From: Patient Onset/Duration: Lasting Hours - 22:00 yesterday, Still Present Aggravating Factor(s): Nothing Alleviating Factor(s): Nothing Associated Signs And Symptoms: Negative: SOB, Chest Pain - Allergies/Home Medications Allergies/Adverse Reactions: Allergies Allergy/AdvReac Type Severity Reaction Status Date / Time No Known Allergies Allergy Verified 12/29/13 09:57 PMH/Surg Hx/FS Hx/Imm Hx Previously Healthy: No Endocrine/Hematology History: Denies: Hx Bone Marrow Disease, Hx Sickle Cell Disease, Hx Anemia Cardiovascular History: Reports: Hx Atrial Fibrillation - paroxysmal afib, Hx Hypercholesterolemia, Hx Hypertension - MEDS, Other Cardiovascular Problems/ Disorders - hld GI History: Reports: Hx Gall Bladder Disease History: Reports: Other Problems/Disorders - incontinent Musculoskeletal History: Reports: Hx Osteoporosis Denies: Hx Arthritis Sensory History: Reports: Hx Cataracts, Hx Contacts or Glasses - READING, Hx Hearing Problem - [place] Denies: Hx Hearing Aid Opthamlomology History: Reports: Hx Cataracts, Hx Contacts or Glasses - READING Neurological History: Reports: Hx Migraine - "SILENT MIGRAINE" WITH FLOURESCENT LIGHTS - Cancer History Cancer Type, Location and Year: prostate 2000 - Surgical History Surgery Procedure, Year, and Place: CHOLECYSTECTOMY MORE THAN 10YRS AGO [facility] [place]. "PROSTATE SURGERY" [facility] Hx Anesthesia Reactions: No Infectious Disease History: No Infectious Disease History: Denies: Traveled Outside the [place] in Last 30 Days - Family History Known Family History: Positive: Other - stroke - Social History Alcohol Use: Rare Hx Substance Use: No Substance Use Type: Reports: None Hx Tobacco Use: Yes Smoking Status (MU): Former Smoker Type: Cigarettes Amount Used/How Often: OCC Review of Systems Negative: Chest Pain Negative: Shortness Of Breath Positive: Vomiting, Diarrhea, Nausea All Other Systems Reviewed And Are Negative: Yes Physical Exam - Summary Physical Exam Summary: VITAL SIGNS: Reviewed. GENERAL: Patient is a well-developed and nourished male who is lying comfortable in the stretcher. Patient is not in any acute respiratory distress. HEAD AND FACE: No signs of trauma. No ecchymosis, hematomas or skull depressions. No sinus tenderness. EYES: PERRLA, EOMI x 2, No injected conjunctiva, no nystagmus. EARS: Hearing grossly intact. Ear canals and tympanic membranes are within normal limits. MOUTH: Oropharynx within normal limits. NECK: Supple, trachea is midline, no adenopathy, no JVD, no carotid bruit, no c- spine tenderness, neck with full ROM. CHEST: Symmetric, no tenderness at palpation LUNGS: Clear to auscultation bilaterally. No wheezing or crackles. CVS: Irregular tachycardia ABDOMEN: Soft, non-tender. No signs of distention. No rebound no guarding, and no masses palpated. Bowel sounds are normal. EXTREMITIES: FROM in all major joints, no edema, no cyanosis or clubbing. NEURO: Alert and oriented x 3. No acute neurological deficits. Speech is normal and follows commands. SKIN: Dry and warm Triage Information Reviewed: Yes Vital Signs On Initial Exam: Initial Vitals Temp Pulse Resp BP Pulse Ox 97.5 F 160 22 88/73 91 02/15/18 01:10 02/15/18 01:10 02/15/18 01:10 02/15/18 01:10 02/15/18 01:10 Vital Signs Reviewed: Yes Diagnostics - Vital Signs Vital Signs Temp Pulse Resp BP Pulse Ox 02/15/18 01:45 109 23 138/86 95 02/15/18 01:26 97 23 104/77 93 02/15/18 01:16 25 88/73 02/15/18 01:13 160 14 92 02/15/18 01:10 97.5 F 160 22 88/73 91 - Laboratory Lab Results: Lab Results 02/15/18 02/15/18 02/15/18 Range/Units 01:32 01:32 01:32 WBC 14.8 H (3.5-10.8) 10^3/ul RBC 5.12 (4.00-5.40) 10^6/ul Hgb 15.9 (14.0-18.0) g/dl Hct 48 (42-52) % MCV 93 (80-94) fL MCH 31 (27-31) pg MCHC 33 (31-36) g/dl RDW 14 (10.5-15) % Plt Count 180 (150-450) 10^3/ul MPV 8.8 (7.4-10.4) um3 Neut % (Auto) Pending Lymph % (Auto) Pending [place] % (Auto) Pending Eos % (Auto) Pending Baso % (Auto) Pending Absolute Neuts (auto) 13.4 H (1.5-7.7) 10^3/ul Absolute Lymphs (auto) Pending Absolute Monos (auto) Pending Absolute Eos (auto) Pending Absolute Basos (auto) Pending Absolute Nucleated RBC 0 10^3/ul Nucleated RBC % Pending INR (Anticoag Therapy) 1.09 H (0.77-1.02) APTT 29.9 (26.0-36.3) seconds Sodium 141 (135-145) mmol/L Potassium 4.0 (3.5-5.0) mmol/L Chloride 109 (101-111) mmol/L Carbon Dioxide 24 (22-32) mmol/L Anion Gap 8 (2-11) mmol/L BUN 22 (6-24) mg/dL Creatinine 1.11 (0.67-1.17) mg/dL Est GFR ( Amer) 76.0 (>60) Est GFR (Non-Af Amer) 62.8 (>60) BUN/Creatinine Ratio 19.8 (8-20) Glucose 116 H (70-100) mg/dL Calcium 8.5 L (8.6-10.3) mg/dL Magnesium 1.7 L (1.9-2.7) mg/dL Total Bilirubin 0.90 (0.2-1.0) mg/dL AST 12 L (13-39) U/L ALT 8 (7-52) U/L Alkaline Phosphatase 54 (34-104) U/L Total Creatine Kinase 32 (10-223) U/L CK-MB (CK-2) 1.7 (0.6-6.3) ng/mL Troponin I 0.01 (<0.04) ng/mL B-Natriuretic Peptide ( - 100) pg/mL Total Protein 6.2 L (6.4-8.9) g/dL Albumin 3.5 (3.2-5.2) g/dL Globulin 2.7 (2-4) g/dL Albumin/Globulin Ratio 1.3 (1-3) TSH Pending 02/15/18 Range/Units 01:32 WBC (3.5-10.8) 10^3/ul RBC (4.00-5.40) 10^6/ul Hgb (14.0-18.0) g/dl Hct (42-52) % MCV (80-94) fL MCH (27-31) pg MCHC (31-36) g/dl RDW (10.5-15) % Plt Count (150-450) 10^3/ul MPV (7.4-10.4) um3 Neut % (Auto) Lymph % (Auto) [place] % (Auto) Eos % (Auto) Baso % (Auto) Absolute Neuts (auto) (1.5-7.7) 10^3/ul Absolute Lymphs (auto) Absolute Monos (auto) Absolute Eos (auto) Absolute Basos (auto) Absolute Nucleated RBC 10^3/ul Nucleated RBC % INR (Anticoag Therapy) (0.77-1.02) APTT (26.0-36.3) seconds Sodium (135-145) mmol/L Potassium (3.5-5.0) mmol/L Chloride (101-111) mmol/L Carbon Dioxide (22-32) mmol/L Anion Gap (2-11) mmol/L BUN (6-24) mg/dL Creatinine (0.67-1.17) mg/dL Est GFR ( Amer) (>60) Est GFR (Non-Af Amer) (>60) BUN/Creatinine Ratio (8-20) Glucose (70-100) mg/dL Calcium (8.6-10.3) mg/dL Magnesium (1.9-2.7) mg/dL Total Bilirubin (0.2-1.0) mg/dL AST (13-39) U/L ALT (7-52) U/L Alkaline Phosphatase (34-104) U/L Total Creatine Kinase (10-223) U/L CK-MB (CK-2) (0.6-6.3) ng/mL Troponin I (<0.04) ng/mL B-Natriuretic Peptide 108 H ( - 100) pg/mL Total Protein (6.4-8.9) g/dL Albumin (3.2-5.2) g/dL Globulin (2-4) g/dL Albumin/Globulin Ratio (1-3) TSH Result Diagrams: 02/15/18 01:32 02/15/18 01:32 Lab Statement: Any lab studies that have been ordered have been reviewed, and results considered in the medical decision making process. - Radiology CXR Radiology Interpretation Completed By: ED Physician - No acute process. Pending official report. - EKG 0110 Cardiac Rate: Tachycardia - 159 BPM EKG Rhythm: Atrial Fibrillation EKG Interpretation: nml axis, diffuse ST depression most likely rate related 0154 Cardiac Rate: Tachycardia - 107 BPM EKG Rhythm: Sinus Rhythm EKG Interpretation: Nonspecific T-wave changes Re-Evaluation - Re-Evaluation First Eval Re-Evaluation Time: 03:00 Comment: patient feels better and is agreeable to go home Complex Multi-Symp Course/Dx Course Of Treatment: 87 year old M BIB EMS to [facility] complains of nausea/vomiting /diarrhea since 22:00 yesterday. Patient has hx A-fib and is on Eliquis. Patient arrives to ED in rapid A-fib. EKG obtained. Patient has gastroeneritis. His n/v/d probably tipped him to a-fib. With fluid, patient converted to sinus rhythm. He will be discharged with follow up from PCP in 1 day. - Diagnoses Provider Diagnoses: Paroxysmal A-fib, Gastroenteritis Discharge - Sign-Out/Discharge Documenting (check all that apply): Patient Departure - Discharge - Discharge Plan Condition: Stable Disposition: HOME Patient Education Materials: A-fib (Atrial Fibrillation) (ED), Gastroenteritis (ED) Referrals: Alexus Bazan MD [Primary Care Provider] - 1 Day Additional Instructions: RETURN TO THE EMERGENCY DEPARTMENT FOR CHANGING OR WORSENING SYMPTOMS. FOLLOW UP WITH YOUR PRIMARY CARE PROVIDER IN 1 DAY. - Attestation Statements Document Initiated by Scribe: Yes Documenting Scribe: Yuridia Martinez Provider For Whom Scribe is Documenting (Include Credential): Sandoval Velazquez MD Scribe Attestation: Yuridia Montgomery, scribed for Sandoval Velazquez MD on 02/15/18 at 0315.
[2018-02-15] MEDS ORDERED: Magnesium Sulfate 2 GM IV* 2 GM/50 ML BAG IVPB ONE (02:10)
[2018-02-15 02:23] LABS: ABS Basophils 0 10^3/ul (0-0.2); ABS Neutrophils 8.3 10^3/ul (1.5-7.7); Monocytes % 2 % (0-7)
[2018-02-15 04:24] VITALS: BP 121/74
--- NOTE | 2018-02-15 08:57 | RAD ---
Indication: Palpitations. Single frontal view of the chest performed at 0135 hours was reviewed. Comparison is made with previous exam dated January 08, 2016. No mediastinal shift is noted. Heart is of normal size and configuration. Lung means appear clear. IMPRESSION: NO ACTIVE CARDIOPULMONARY DISEASE IS NOTED.
== END 2018-02-15 03:45 | disposition home or self-care (01) ==
LOC: ED 01:05
DX: K52.9 Noninfective gastroenteritis and colitis, unspecified (principal); I48.0 Paroxysmal atrial fibrillation; Z79.01 Long term (current) use of anticoagulants; Z90.49 Acquired absence of other specified parts of digestive tract; Z87.891 Personal history of nicotine dependence
CPT/HCPCS: 36415; 71045; 80053; 82550; 82553; 83605; 83735; 83880; 84443; 84484; 85025; 85610; 85730; 93005; 96360; 99284; J1160; J3490